=== PATIENT | female | born 1960 | race Caucasian/White ===

== ENCOUNTER 2022-05-13 10:48 | Outpatient (CLI) | payer MEDICARE, BC, SELFPAY ==
[2022-05-13 15:34] LABS: TSH With Reflex to FT4* 0.745 uIU/mL (0.270-4.200)
== END 2022-05-13 10:49 | disposition home or self-care (01) ==
LOC: KYNREF 10:49
PROVIDERS: PCP Nurse Practitioner Family; Visit Provider Nurse Practitioner Family
DX: E01.0 Iodine-deficiency related diffuse (endemic) goiter (principal)
CPT/HCPCS: 84443

== ENCOUNTER 2022-05-21 10:51 | Outpatient (CLI) | payer MEDICARE, BC, SELFPAY ==
--- NOTE | 2022-05-21 11:00 | CRLHL7_ITS ---
For Patients: As a result of the Cures Act, medical imaging exams and procedure reports are released immediately into your electronic medical record. You may view this report before your referring provider. If you have questions, please contact your health care provider. INDICATION: Thyromegaly COMPARISON: none TECHNIQUE: Hinkle scale and color Doppler images were acquired of the thyroid gland. FINDINGS: There is a solid and cystic nodule within the lower pole of the left thyroid lobe measuring 2.6 x 2.3 x 3.0 cm. Solid and cystic nodule also present within the midportion of the left thyroid lobe measuring 1.1 x 1.1 x 1.5 cm. Small spongiform nodules within the right thyroid lobe measuring 1.1 cm and 0.8 cm. The right lobe measures 6.5 x 1.8 x 2.2 cm and the left lobe measures 7.8 x 1.8 x 2.1 cm in size. The isthmus measures 2 millimeters. The color Doppler images demonstrate normal vascularity. There is no evidence of cervical lymphadenopathy or parathyroid mass. IMPRESSION: 3.0 cm nodule within the inferior pole of the left thyroid lobe. TR 3-FNA recommended. Dictated by Daniel Shepard MD @ 05/21/2022 1:58:06 PM (Electronically Signed)
== END 2022-05-21 10:52 | disposition home or self-care (01) ==
PROVIDERS: PCP Nurse Practitioner Family; Visit Provider Nurse Practitioner Family
DX: E01.0 Iodine-deficiency related diffuse (endemic) goiter (principal); E04.1 Nontoxic single thyroid nodule
CPT/HCPCS: 76536

== ENCOUNTER 2023-04-17 13:39 | Outpatient (CLI) | payer MEDICARE, BC, SELFPAY | END 2023-04-17 13:40 | disposition home or self-care (01) | PROVIDERS: PCP Nurse Practitioner Family; Visit Provider Nurse Practitioner Family | DX: R20.2 Paresthesia of skin (principal); E78.5 Hyperlipidemia, unspecified; E04.9 Nontoxic goiter, unspecified; M85.80 Other specified disorders of bone density and structure, unspecified site | CPT/HCPCS: 82607; 82746; 82947; 84443 ==

== ENCOUNTER 2024-08-30 13:23 | Outpatient (CLI) | payer MEDICARE, SELFPAY | END 2024-08-30 13:24 | disposition home or self-care (01) | PROVIDERS: PCP Nurse Practitioner Family; Visit Provider Nurse Practitioner Family | DX: E04.9 Nontoxic goiter, unspecified (principal); E78.5 Hyperlipidemia, unspecified | CPT/HCPCS: 80053; 84443 ==

== ENCOUNTER 2024-10-01 11:06 | Outpatient (CLI) | payer MEDICARE, SELFPAY | END 2024-10-01 11:07 | disposition home or self-care (01) | LOC: KYNREF 11:08 | PROVIDERS: PCP Nurse Practitioner Family; Visit Provider Nurse Practitioner Family | DX: R09.89 Other specified symptoms and signs involving the circulatory and respiratory systems (principal) | CPT/HCPCS: 85379 ==